=== PATIENT | female | born 1960 | race Two or more races ===

== ENCOUNTER 2024-02-06 06:23 | Day surgery (SDC) | payer BC ==
[2024-02-06] VITALS (10 sets, daily range): BP systolic 124–146; BP diastolic 68–81; PULSE 71–84; RESP 11–20; TEMP 97.8; O2SAT 91–95
[~2024-02-06] VITALS: Ht 167.6 cm; Wt 103.9 kg
[~2024-02-06 06:23] MED LIST: ESCI1TAB37 PO; FOLI-119 PO; HYDR-4902 PO; IBUP-1455 PO; KETO2CRE4 EX; LEVO125T7 PO; LIOT25TA19 PO; LOSA-533 PO; METF-370 PO; METH-1182 PO; METH2.5T PO; METO-289 PO; NYS5LQ MT; POM; SEMA0.5I SC; [UNRECOGNIZED DRUG - CODE] EX; [UNRECOGNIZED DRUG - CODE] EX
[2024-02-06] MEDS ORDERED: IODIXANOL 320MG/ML 100ML BTL IV ONE ×2 (07:45→08:01)
[2024-02-06] MEDS ORDERED: SODIUM CHL 0.9% 0 ML ONE (08:17)
[2024-02-06] MEDS ORDERED: ANGIOMAX 250 MG VIAL IV ONE (08:17)
[2024-02-06] MEDS ORDERED: LIDOCAINE 2%HCL (LOCAL ANESTH.) INJ 20ML MDV ONE (08:17)
[2024-02-06] MEDS ORDERED: VERAPAMIL 2.5MG/ML INJ 2ML VIAL IV ONE (08:17)
[2024-02-06] MEDS ORDERED: fentaNYL CITRATE 100 MCG/2 ML VL ONE (08:17)
[2024-02-06] MEDS ORDERED: HEPARIN SODIUM (PORCINE) 5000 UNITS/ML 1ML VIAL ONE (08:17)
[2024-02-06] MEDS ORDERED: MIDAZOLAM HCL 2MG/2ML 2ml VIAL (1mg/ml) ONE (08:17)
== END 2024-02-06 11:06 | disposition home or self-care (01) ==
LOC: CATH 06:23
PROVIDERS: ATTEND Internal Medicine
DX: R94.39 Abnormal result of other cardiovascular function study (principal); I25.119 Atherosclerotic heart disease of native coronary artery with unspecified angina pectoris; M19.90 Unspecified osteoarthritis, unspecified site; M79.7 Fibromyalgia; M47.9 Spondylosis, unspecified; I10 Essential (primary) hypertension; Z91.040 Latex allergy status; Z88.5 Allergy status to narcotic agent; Z79.899 Other long term (current) drug therapy; Z98.890 Other specified postprocedural states; Z82.49 Family history of ischemic heart disease and other diseases of the circulatory system
CPT/HCPCS: 93458; C1894; J1644; J2250; J3010; Q9967; 99152

== ENCOUNTER 2025-02-28 19:26 | Emergency (ER) | payer BC ==
[~2025-02-28] VITALS: Ht 167.6 cm; Wt 101.0 kg
[2025-02-28] MEDS ORDERED: OXYCODONE W/ ACETAMINOPHEN 5/325MG TABLET PO ONE (20:00)
--- NOTE | 2025-02-28 20:14 | ED.PDOC ---
Reed. trauma (HPI) HPI Comments PT PRESENTS TO ED FOR CC OF FALL INJURY S/P MECHANICAL TRIP AND FALL FROM DOG. PT SUSTAINED FACIAL ABRASIONS AND L EYEBROW CONTUSION WITH HEMATOMA. ABRASION AND EDEMA OVER BRIDGE OF NOSE. PT ALSO REPORTS L SHOULDER, NECK LEFT SIDE, AND FOREARM PAIN. DENIES LOC. DIFFICULTY BREATHING, SHORTNESS OF BREATH, DIZZINESS, NAUSEA, VOMITING, BLURRED VISION, OR ON BLOOD THINNERS. Chief Complaint: Fall Injury Time Seen by MD: 19:54 Reviewed notes: Nurses Notes, Pharmacy Care Coordinator Notes, Medications, Allergies Allergies: Coded Allergies: Latex (Verified Allergy, Unknown, Rash after 24 hrs, 02/01/24) Naproxen (Verified Allergy, Unknown, hives, 02/01/24) Home Meds Reported Medications Hydrocodone-Acetaminophen (Hydrocodone Bitartrate/AC 5-325 mg) 1 Tab Tab, 1 TAB PO Q8HP PRN for PAIN SCALE 7 THRU 10, TAB 02/01/24 Dermatological Products, Misc. (Epiceram) Emu, 1 EX PRN for ACZEMA, EA 02/01/24 Metoprolol Succinate (Metoprolol Succinate Er) 50 Mg Tab, 50 MG PO DAILY for HTN for 30 Days, MG 02/01/24 Semaglutide (Wegovy) 0.5 Mg/0.5 Ml Inj, 0.5 MG SC QWEEKLY for WEIGHT LOSS, INJ 02/01/24 Methotrexate (Methotrexate) 2.5 Mg Tab, 15 MG PO EVERY TUESDAY for ARTHRITIS, MG 02/01/24 Levothyroxine Sodium (Levothyroxine Sodium) 125 Mcg Tab, 125 MCG PO QAM for LOW THYROID for 30 Days, MCG 02/01/24 Folic Acid (Folic Acid) 1 Mg Tab, 1 MG PO 6XWEEK for SUPPLEMENT, MG 02/01/24 Ketoconazole (Ketoconazole) 2 % Cre, 2 % EX 2XWEEK PRN for ANTIFUNGUL, CRE 02/01/24 Methocarbamol (Methocarbamol) 750 Mg Tab, 750 MG PO BID for FIBROMYALGIA for 30 Days, MG 02/01/24 Metformin Hydrochloride (Metformin Hcl) 500 Mg Tab, 500 MG PO IBID for WEIGHT LOSS for 30 Days, MG 02/01/24 Losartan Potassium (Losartan Potassium) 25 Mg Tab, 25 MG PO DAILY for HTN for 30 Days, MG 02/01/24 Liothyronine Sodium (Liothyronine Sodium) 25 Mcg Tab, 25 MCG PO DAILY for low thyroid, TAB 02/01/24 Escitalopram Oxalate (ESCITALOPRAM OXALATE) 20 Mg Tab, 1 TAB PO DAILY for DEPRESSION, #30 TAB 5 Refills 02/01/24 Nystatin (Mouth-Throat) (Mycostatin (Mouth-Throat)) 500,000 Units/5 Ml Ss, 1 ML MT PRN for THRUSH for 10 Days, #200 ML 02/01/24 Clobetasol Propionate Emulsion (CLOBETASOL PROPIONATE) 0.05 % Aer, 0.05 % EX PRN for SKIN RASH, AER 02/01/24 Ibuprofen Micronized (Ibuprofen) 800 Mg Tab, 800 MG PO TID for ARTHRITIS, TAB 02/01/24 Patients Own Medication (PATIENTS OWN MEDICATION) ., 100 MG [id number] for Remicade for spondylosis PTS OWN MED-OBTAIN FROM PT AND SEND TO RX DRUG: FREQ: RX# EXP: DATE DISP: TECH: [facility]: 02/01/24 Mode of Arrival: EMS Past Medical History PAST MEDICAL HISTORY: Arthritis, HTN Past Medical History (Other): ANSPONDYLOSIS Family History Family History: Unknown Social History Smoker: Non-Smoker Alcohol: Denies ETOH Use Drugs: Denies Drug Use All Other Systems: Reviewed and Negative (SEE HPI) Physical Exam General Appearance: No Apparent Distress, Normal HEENT: Head (TRACE EDEMA BRIDGE OF NOSE WITH SUPERFICIAL ABRASION AND ECCHYMO SIS NO NOTED BLEEDING. LEFT EYE ORBITAL CONTUSION AND EDEMA NOTED SUPERFICIAL ABRASION BLEEDING CONTROLLED VISION INTACT), Pharynx Normal, TMs Normal Neck: Limited Range of Motion, Tender Lateral (LEFT SIDE AGAINST RESISTANCE) Respiratory: Chest Non-Tender, Lungs Clear, No Accessory Muscle Use, No Respiratory Distress, Normal Breath Sounds Cardiovascular: No Edema, No JVD, No Murmur, No Gallop, Normal Peripheral Pulses, Regular Rate/Rhythm Breast Exam: Deferred Gastrointestinal: No Organomegaly, Non Tender, No Pulsatile Mass, Normal Bowel Sounds, Soft Genitalia: Deferred Pelvic: Deferred Rectal: Deferred Extremities: Normal capillary refill, Normal range of motion, Non-tender, No pedal edema Musculoskeletal : Location: Left Extremity Location: Shoulder (TENDERNESS OVER SHOULDER GIRDLE FULL RANGE OF MOTION WITH MODERATE DISCOMFORT STRENGTH SENSORY MOTION INTACT POSITIVE PEDAL PULSE. LEFT FOREARM TENDERNESS ON PALPATION NO NOTED ABRASIONS ECCHYMOSIS OR EDEMA LEFT WRIST FULL RANGE OF MOTION NO TENDERNESS. STRENGTH SENSORY MOTION INTACT POSITIVE RADIAL PULSE) Apperance: Normal Neurologic: Alert, animal husbandry worker II-XII nml as Tested, No Motor Deficits, Normal Affect, Normal Mood, No Sensory Deficits Cerebellar Function: Normal Reflexes: Normal Skin: Dry, Normal Color, Warm Lymphatic: No Adenopathy Was a procedure done? Was a procedure done?: No Differential Diagnosis Multiple Trauma: Closed Head Injury, Fractures, Cerebral Contusion, Spine Injury, Abrasions, Contusion, Hematoma, Laceration Neck Injury: Cervical Muscle Spasm, Cervical Sprain, Cervical Strain, Cervical Fracture X-Ray, Labs, Meds, VS Vital Signs Date Time Temp Pulse Resp B/P (MAP) Pulse Ox O2 Delivery O2 Flow Rate FiO2 02/28/25 19:26 98.9 88 18 141/76 94 98.9 X-Ray, Labs, Meds, VS Comment CT MAXILLOFACIAL SHOWS NASAL BONE FRACTURE. AND ORBITAL EDEMA WITHOUT FRACTURE. CT NECK SHOWS NO ACUTE FRACTURES SUBLUXATIONS OR OSSEOUS LESIONS. X-RAY OF LEFT SHOULDER LEFT FOREARM SHOW NO ACUTE FRACTURES DISLOCATIONS OR OSSE OUS LESIONS. Advised to rest increase p.o. fluids with electrolytes. Light diet. Monitor for the next 24-48 hours avoid visual stimuli such as computeR, vor cell phone use to avoid headaches. Avoid vigorous activity. Return to the ER for nonstop vomiting, numbness, weakness, slurred speech, lethargy, or any concerning symptoms. PT indicates understanding and agrees with discharge plan of care Images Reviewed?: Images reviewed and evaluated by me Time of 1ST Reevaluation: 19:54 Reevaluation 1ST: Unchanged Time of 2ND Reevaluation: 21:30 Reevaluation 2ND: Improved Patient Education/Counseling: Diagnosis, Treatment, Need For Follow Up Family Education/Counseling: No Family Present Departure 1 Departure Time of Disposition: 21:30 Impression: Primary Impression: Nasal bone fx-closed Qualified Codes: S02.2XXA - Fracture of nasal bones, initial encounter for closed fracture Additional Impressions: Whiplash injury, acute Qualified Codes: S13.4XXA - Sprain of ligaments of cervical spine, initial encounter Contusion of face Qualified Codes: S00.83XA - Contusion of other part of head, initial encounter Forearm contusion Qualified Codes: S50.12XA - Contusion of left forearm, initial encounter Left shoulder strain Qualified Codes: S46.912A - Strain of unspecified muscle, fascia and tendon at shoulder and upper arm level, left arm, initial encounter Disposition: 01 HOME / SELF CARE / HOMELESS Condition: Stable Discharged With: Self Critical Care Note Critical Care Time?: No Stability Stability form required: MALI Roy Feb 28, 2025 20:14
--- NOTE | 2025-02-28 20:59 | DVH ---
HISTORY: Status post fall nasal and left orbital injury TECHNIQUE: Nonenhanced axial images through the facial bones with coronal and sagittal MPR. Radiation Dose Information: CT Dose: CTDI volume is 56.37 mGy. Dose-length product is 07.7 mGy*cm COMPARISON: CT ABD/PEL on DOS: 11/11/24 FINDINGS: Mandible: Unremarkable Maxilla: Unremarkable Zygomatic arches: Unremarkable Nasal bone: Comminuted fracture of the tip of the nasal bones. Orbits: Unremarkable Sinuses: Clear Facial swelling: Left supraorbital soft tissue swelling. IMPRESSION: Comminuted fracture at the tip of the nasal bones. Radiation optimization: All CT scans at this facility use at least one of these dose optimization techniques: automated exposure control mA and/or kV adjustment per patient size (includes targeted exams where dose is matched to clinical indication) or iterative reconstruction.
--- NOTE | 2025-02-28 21:06 | DVH ---
CLINICAL INDICATION: Status post fall injury, pain TECHNIQUE: XYXY L FOREARM XRAY Comparison: XY L SHOULDER 2+ VIEW XRAY on DOS: 02/28/25 FINDINGS/IMPRESSION: : There is no evidence of acute fracture or dislocation. Soft tissues are unremarkable.
--- NOTE | 2025-02-28 21:06 | DVH ---
CLINICAL INDICATION: Status post fall injury, pain TECHNIQUE: XYXY L SHOULDER 2+ VIEW XRAY Comparison: XR CHEST 1 VIEW on DOS: 11/11/24 FINDINGS/IMPRESSION: : There is no evidence of acute fracture or dislocation. Soft tissues are unremarkable.
--- NOTE | 2025-02-28 21:08 | DVH ---
EXAM: CT CERVICAL WITHOUT CONTRAST HISTORY: Status post fall neck pain COMPARISON: CT MAXILLOFACIAL WITHOUT on DOS: 02/28/25, CT BRAIN on DOS: 11/11/24 CTDIvol 17.05 mGy, DLP 449.76 mGy*cm. TECHNIQUE: Multiple axial CT images of the spine were obtained using bone algorithm. Axial and coronal reformatting was done. Bone and soft tissue windows were reviewed. FINDINGS: No evidence of definite acute fracture, spinal dislocation, or significant appearing acute subluxation is seen. IMPRESSION: No acute cervical spine abnormality.
[2025-02-28] MEDS: HYDROcodone-ACET 5/325MG TAB PO ONE (21:53)
[2025-02-28 21:59] VITALS: BP 114/83; PULSE 87; RESP 22; TEMP 98.7; O2SAT 95
== END 2025-02-28 22:05 | disposition home or self-care (01) ==
LOC: EDBD 19:26 → ER 19:29
DX: S02.2XXA Fracture of nasal bones, initial encounter for closed fracture (principal); S13.4XXA Sprain of ligaments of cervical spine, initial encounter; S46.912A Strain of unspecified muscle, fascia and tendon at shoulder and upper arm level, left arm, initial encounter; S00.83XA Contusion of other part of head, initial encounter; S50.12XA Contusion of left forearm, initial encounter; M19.90 Unspecified osteoarthritis, unspecified site; I10 Essential (primary) hypertension; Z79.899 Other long term (current) drug therapy; Z91.040 Latex allergy status; Z88.6 Allergy status to analgesic agent; Z79.1 Long term (current) use of non-steroidal anti-inflammatories (NSAID); Z79.890 Hormone replacement therapy; Z79.01 Long term (current) use of anticoagulants; W19.XXXA Unspecified fall, initial encounter; Y93.89 Activity, other specified; Y92.89 Other specified places as the place of occurrence of the external cause; Y99.8 Other external cause status
CPT/HCPCS: 70486; 72125; 73030; 73090